=== PATIENT | female | born 1960 | race Caucasian/White ===

== ENCOUNTER 2020-02-27 10:31 | Inpatient (IN) | payer BC, OTHER ==
[2020-02-27 11:32] LABS: Absolute Lymphocytes (CBC) 1.4 K/uL (0.7-4.9); Basophils % 1.1 % (0-1.3); Hematocrit 40.5 % (36.0-45.0); Lymphocytes % 18.1 % (15.3-44.8); MPV 9.1 fL (7.6-11.3); RBC Red Blood Cell Count 4.26 M/uL (3.86-4.86)
[2020-02-27 11:54] LABS: ALT/SGPT 17 U/L (12-78); AST/SGOT 12 U/L (15-37); Albumin 3.4 g/dL (3.4-5.0); Alkaline Phosphatase 88 U/L (45-117); BUN Blood Urea Nitrogen 11 mg/dL (7-18); Bicarbonate 34 mmol/L (21-32); Bilirubin Direct < 0.1 mg/dL (0-0.2); Bilirubin Total 0.2 mg/dL (0.2-1.0); Glucose Level 110 mg/dL (74-106); Lipase 104 U/L (73-393); Protein, Total 7.4 g/dL (6.4-8.2); Sodium Level 138 mmol/L (136-145)
--- NOTE | 2020-02-27 12:45 | RAD REPORT ---
EXAM DESCRIPTION: CT - Abdomen Pelvis W Contrast - 02/27/2020 12:04 pm CLINICAL HISTORY: Abdominal pain COMPARISON: 2013 TECHNIQUE: Computed axial tomography of the abdomen pelvis was obtained. 100 cc Isovue-300 was admin istered intravenously. Oral contrast was not requested which limits evaluation of bowel. All CT scans are performed using dose optimization technique as appropriate and may include automated exposure control or mA/KV adjustment according to patient size. FINDINGS: The liver, spleen, pancreas, left adrenal adrenal and kidneys appear unremarkable. A 20 mi llimeter right adrenal nodule unchanged likely an adenoma. There is no evidence of diverticulitis. Appendectomy. Mild to moderate stranding adjacent to the cecum. Small diverticulum is present. No free air. No absc ess IMPRESSION: Mild to moderate cecal diverticulitis suspected
--- NOTE | 2020-02-27 13:52 | EDPHYS ---
Physician Documentation [facility] Name: Sangita Ford Age: 59 yrs Sex: Female : 1960 Arrival Date: 02/27/2020 Time: 10:34 Bed 7 Private MD: ED Physician Buck Bae HPI: 02/26 11:23 This 59 yrs old Female presents to ER via Ambulatory with complaints of rn Fever, abd pain. 11:23 The patient reports fever, not measured (subjective). rn 11:24 Onset: The symptoms/episode began/occurred 2 week(s) ago. Modifying factors: there are rn no obvious modifying factors. Severity of symptoms: At their worst the symptoms were moderate in the emergency department the symptoms are unchanged. The patient has experienced similar episodes in the past. Reports taking abx for supposed diverticulitis, has had right sided diverticulitis in past, appendix removed at that time, reports not getting better, + right lower quadrant abd pain with nausea. No diarrhea or blood in stool. + decreased appetite. . Historical: - Allergies: 10:44 Fentanyl; aa5 - Home Meds: 10:44 clonidine patch [Active]; aa5 - PMHx: 10:44 Diverticulitis; Thalamic stroke; aa5 - PSHx: 10:44 Appendectomy; total hysterectomy; Carpal Tunnel Repair; aa5 - Immunization history:: Flu vaccine is not up to date. - Social history:: Smoking status: Patient reports the use of cigarette tobacco products, smokes one-half pack cigarettes per day. - Family history:: not pertinent. - Hospitalizations: : No recent hospitalization is reported. ROS: 11:24 Constitutional: + subjective fever Eyes: Negative for injury, pain, redness, and director furniture, Neck: Negative for injury, pain, and swelling, Cardiovascular: Negative for chest pain, palpitations, and edema, Respiratory: Negative for shortness of breath, cough, wheezing, and pleuritic chest pain, Abdomen/GI: + right lower abd pain, + nausea, + anorexia Back: Negative for injury and pain, : Negative for injury, bleeding, discharge, and swelling, MS/Extremity: Negative for injury and deformity, Skin: Negative for injury, rash, and discoloration, Neuro: Negative for headache, weakness, numbness, tingling, and seizure. Exam: 11:24 Constitutional: This is a well developed, well nourished patient who is awake, alert, rn and in no acute distress. Head/Face: Normocephalic, atraumatic. ENT: MMM Cardiovascular: Regular rate and rhythm. No pulse deficits. Respiratory: No increased work of breathing, no retractions or nasal flaring. Abdomen/GI: soft, + right sided abd tenderness with guarding Skin: Warm, dry MS/ Extremity: Pulses equal, no cyanosis. Neurovascular intact. Full, normal range of motion. Equal circumference. Neuro: Awake and alert, GCS 15, oriented to person, place, time, and situation. Vital Signs: 10:39 BP 139 / 102; Pulse 87; Resp 16 S; Temp 98.8(O); Pulse Ox 98% on R/A; Weight 68.95 kg aa5 (R); Height 5 ft. 5 in. (165.10 cm) (R); Pain 8/10; 11:49 BP 123 / 76; Pulse 70; Resp 16 S; Pulse Ox 92% on R/A; jl7 12:51 BP 120 / 65; Pulse 69; Resp 16; Pulse Ox 96% ; sv 15:03 BP 114 / 72; Pulse 61; Resp 16; Pulse Ox 98% ; sv 16:04 BP 113 / 63; Pulse 56; Resp 16; Pulse Ox 95% ; sv 16:48 BP 114 / 59; Pulse 51; Resp 17; Pulse Ox 95% ; sv 17:45 BP 115 / 61; Pulse 58; Resp 16; Pulse Ox 98% ; Pain 0/10; jl7 10:39 Body Mass Index 25.29 (68.95 kg, 165.10 cm) aa5 MDM: 10:47 Patient medically screened. rn 13:38 Differential diagnosis: viral Infection, bacterial infection, gastroenteritis, colitis, rn diverticulitis. Data reviewed: vital signs, nurses notes, lab test result(s), radiologic studies, CT scan, and as a result, I will admit patient. Counseling: I had a detailed discussion with the patient and/or guardian regarding: the historical points, exam findings, and any diagnostic results supporting the discharge/admit diagnosis, lab results, radiology results, the need for further work-up and treatment in the hospital. Response to treatment: the patient's symptoms have mildly improved after treatment, and as a result, I will admit patient. Admission orders: after a detailed discussion of the patient's condition and case, the admit orders are written by me. ED course: Pt with failed outpt treatment, mild to moderate diverticulitis despite 2 weeks of abx. No perforation or abscess. Consulted with Dr. Johnston and agrees with admisison and IV abx. . 02/26 11:01 Order name: Basic Metabolic Panel; Complete Time: 12:08 rn 02/26 11:01 Order name: CBC with Diff; Complete Time: 12:08 rn 02/26 11:01 Order name: Creatinine for Radiology; Complete Time: 12:08 rn 02/26 11:01 Order name: Hepatic Function; Complete Time: 12:08 rn 02/26 11:01 Order name: Lipase; Complete Time: 12: rn 02/26 16:36 Order name: CBC with Automated Diff EDDE 02/26 11:01 Order name: CT Abd/Pelvis - IV Contrast Only; Complete Time: 12:53 rn 02/26 16:35 Order name: CONS Pharmacy Consult EDDE 02/26 16:36 Order name: CBC with Automated Diff EDDE 02/26 16:36 Order name: Comprehensive Metabolic Panel EDDE 02/26 16:36 Order name: Comprehensive Metabolic Panel EDDE 02/26 11:01 Order name: IV Saline Lock; Complete Time: 11:30 rn 02/26 11:01 Order name: Labs collected and sent; Complete Time: 11:30 rn 02/26 16:36 Order name: Full Liquid EDDE Administered Medications: 14:45 Drug: Demerol 25 mg Route: IVP; Site: right antecubital; jl7 15:10 Follow up: Response: No adverse reaction; Pain is decreased jl7 14:46 Drug: Rocephin 1 grams Route: IV; Rate: calculated rate; Site: right antecubital; jl7 14:49 Follow up: Response: No adverse reaction; IV Status: Completed infusion jl7 14:50 Drug: Flagyl 500 mg Volume: 100 ml; Route: IVPB; Rate: 200 ml/hr; Infused Over: 30 jl7 mins; Site: right antecubital; 15:20 Follow up: Response: No adverse reaction; IV Status: Completed infusion jl7 Disposition: 02/27/20 13:51 Hospitalization ordered by Shelli Johnson for Inpatient Admission. Preliminary diagnosis are Diverticulitis of large intestine without perforation or abscess without bleeding, Failed outpatient treatment of diverticulitis. - Bed requested for Telemetry/MedSurg (Inpatient). - Status is Inpatient Admission. jl7 - Condition is Stable. - Problem is an ongoing problem. - Symptoms have improved. Signatures: Dispatcher [employer] EDMS Sonal William RN RN dw Buck Bae MD MD rn Calderon, Audri, RN RN aa5 Senthil Hurtado RN RN jl7 Corrections: (The following items were deleted from the chart) 13:51 13:51 Hospitalization Ordered by Shelli Johnson MD for Inpatient Admission. Preliminary rn diagnosis is Diverticulitis of large intestine without perforation or abscess without bleeding. Bed requested for Telemetry/MedSurg (Inpatient). Status is Inpatient Admission. Condition is Stable. Problem is an ongoing problem. Symptoms have improved. rn 17:19 13:51 02/27/2020 13:51 Hospitalization Ordered by Shelli Johnson MD for Inpatient dw Admission. Preliminary diagnosis is Diverticulitis of large intestine without perforation or abscess without bleeding; Failed outpatient treatment of diverticulitis. Bed requested for Telemetry/MedSurg (Inpatient). Status is Inpatient Admission. Condition is Stable. Problem is an ongoing problem. Symptoms have improved. rn 17:22 17:19 02/27/2020 13:51 Hospitalization Ordered by Shelli Johnson MD for Inpatient dw Admission. Preliminary diagnosis is Diverticulitis of large intestine without perforation or abscess without bleeding; Failed outpatient treatment of diverticulitis. Bed requested for Telemetry/MedSurg (Inpatient). Status is Inpatient Admission. Condition is Stable. Problem is an ongoing problem. Symptoms have improved. dw 18:09 17:22 02/27/2020 13:51 Hospitalization Ordered by Shelli Johnson MD for Inpatient jl7 Admission. Preliminary diagnosis is Diverticulitis of large intestine without perforation or abscess without bleeding; Failed outpatient treatment of diverticulitis. Bed requested for Telemetry/MedSurg (Inpatient). Status is Inpatient Admission. Condition is Stable. Problem is an ongoing problem. Symptoms have improved. dw
--- NOTE | 2020-02-27 13:52 | ER ---
Nurse's Notes [facility] Name: Sangita Ford Age: 59 yrs Sex: Female : 1960 Arrival Date: 02/27/2020 Time: 10:34 Bed 7 Private MD: Diagnosis: Diverticulitis of large intestine without perforation or abscess without bleeding;Failed outpatient treatment of diverticulitis Presentation: 02/26 10:39 Chief complaint: Patient states: "I've been treated for diverticulitis since the and it's not getting better and Dr. Johnston told me to come to the ER". Pt c/o pain to right side of abdomen. Pt reports nausea, denies vomiting, denies diarrhea. Pt reports fever up to 100.4 F since Thursday. Coronavirus screen: Patient denies a cough. Patient denies shortness of breath or difficulty breathing. Patient reports a measured and/or subjective temperature greater than 100.4F. Patient denies travel on a cruise ship or to a country the [facility]NOTE 3] currently lists as an affected area. Patient denies contact with known and/or suspected case of COVID-19. Ebola Screen: Patient negative for fever greater than or equal to 101.5 degrees Fahrenheit, and additional compatible Ebola Virus Disease symptoms. Initial Sepsis Screen: Does the patient meet any 2 criteria? No. Patient's initial sepsis screen is negative. Does the patient have a suspected source of infection? No. Patient's initial sepsis screen is negative. Risk Assessment: Do you want to hurt yourself or someone else? Patient reports no desire to harm self or others. Onset of symptoms was February 2020. 10:39 Acuity: ALANNAH 3 aa5 10:39 Method Of Arrival: Ambulatory aa5 Historical: - Allergies: 10:44 Fentanyl; aa5 - Home Meds: 10:44 clonidine patch [Active]; aa5 - PMHx: 10:44 Diverticulitis; Thalamic stroke; aa5 - PSHx: 10:44 Appendectomy; total hysterectomy; Carpal Tunnel Repair; aa5 - Immunization history:: Flu vaccine is not up to date. - Social history:: Smoking status: Patient reports the use of cigarette tobacco products, smokes one-half pack cigarettes per day. - Family history:: not pertinent. - Hospitalizations: : No recent hospitalization is reported. Screenin:49 Abuse screen: Denies threats or abuse. Denies injuries from another. Nutritional jl7 screening: No deficits noted. Tuberculosis screening: No symptoms or risk factors identified. Fall Risk IV access (20 points). Total Liang Fall Scale indicates No Risk (0-24 pts). Assessment: 11:00 General: Appears in no apparent distress. uncomfortable, Behavior is calm, cooperative, jl7 appropriate for age. Pain: Complains of pain in right upper quadrant Pain does not radiate. Pain currently is 10 out of 10 on a pain scale. Is continuous. Neuro: Level of Consciousness is awake, alert, obeys commands, Oriented to person, place, time, situation. Cardiovascular: Patient's skin is warm and dry. Respiratory: Airway is patent Respiratory effort is even, unlabored, Respiratory pattern is regular, symmetrical. GI: Abdomen is round non-distended, Last BM was February 27, 2020. Abdomen is tender to palpation in right upper quadrant Reports nausea, Patient currently denies constipation, diarrhea, vomiting. : No signs and/or symptoms were reported regarding the genitourinary system. EENT: No signs and/or symptoms were reported regarding the EENT system. Derm: Skin is pink, warm \\T\\ dry. Musculoskeletal: No signs and/or symptoms reported regarding the musculoskeletal system. 11:30 Reassessment: Pt's , Maurice Ford [phone]. jl7 12:00 Reassessment: Patient appears in no apparent distress at this time. No changes from jl7 previously documented assessment. Patient and/or family updated on plan of care and expected duration. Pain level reassessed. Patient is alert, oriented x 3, equal unlabored respirations, skin warm/dry/pink. 13:00 Reassessment: Patient appears in no apparent distress at this time. Patient and/or jl7 family updated on plan of care and expected duration. Pain level reassessed. Patient is alert, oriented x 3, equal unlabored respirations, skin warm/dry/pink. 13:38 Reassessment: Dr. Johnston at bedside. jl7 14:54 Reassessment: Patient appears in no apparent distress at this time. No changes from jl7 previously documented assessment. Patient and/or family updated on plan of care and expected duration. Pain level reassessed. Patient is alert, oriented x 3, equal unlabored respirations, skin warm/dry/pink. 17:41 Reassessment: Attempted to call report, nurse to call back. sv Vital Signs: 10:39 BP 139 / 102; Pulse 87; Resp 16 S; Temp 98.8(O); Pulse Ox 98% on R/A; Weight 68.95 kg aa5 (R); Height 5 ft. 5 in. (165.10 cm) (R); Pain 8/10; 11:49 BP 123 / 76; Pulse 70; Resp 16 S; Pulse Ox 92% on R/A; jl7 12:51 BP 120 / 65; Pulse 69; Resp 16; Pulse Ox 96% ; sv 15:03 BP 114 / 72; Pulse 61; Resp 16; Pulse Ox 98% ; sv 16:04 BP 113 / 63; Pulse 56; Resp 16; Pulse Ox 95% ; sv 16:48 BP 114 / 59; Pulse 51; Resp 17; Pulse Ox 95% ; sv 17:45 BP 115 / 61; Pulse 58; Resp 16; Pulse Ox 98% ; Pain 0/10; jl7 10:39 Body Mass Index 25.29 (68.95 kg, 165.10 cm) aa5 ED Course: 10:34 Patient arrived in ED. ag5 10:38 Arm band placed on. aa5 10:41 Triage completed. aa5 10:45 Senthil Hurtado RN is Primary Nurse. jl7 10:47 Buck Bae MD is Attending Physician. rn 11:49 Patient has correct armband on for positive identification. Placed in gown. Bed in low jl7 position. Call light in reach. Side rails up X 1. Pulse ox on. NIBP on. Warm blanket given. 11:49 Initial lab(s) drawn, by mo, sent to lab. Inserted saline lock: 20 gauge in right jl7 antecubital area, using aseptic technique. Blood collected. 12:04 CT Abd/Pelvis - IV Contrast Only In Process Unspecified. EDMS 13:51 Shelli Johnson MD is Hospitalizing Provider. rn 18:08 No provider procedures requiring assistance completed. Patient admitted, IV remains in jl7 place. intact, No redness/swelling at site. Administered Medications: 14:45 Drug: Demerol 25 mg Route: IVP; Site: right antecubital; jl7 15:10 Follow up: Response: No adverse reaction; Pain is decreased jl7 14:46 Drug: Rocephin 1 grams Route: IV; Rate: calculated rate; Site: right antecubital; jl7 14:49 Follow up: Response: No adverse reaction; IV Status: Completed infusion jl7 14:50 Drug: Flagyl 500 mg Volume: 100 ml; Route: IVPB; Rate: 200 ml/hr; Infused Over: 30 jl7 mins; Site: right antecubital; 15:20 Follow up: Response: No adverse reaction; IV Status: Completed infusion jl7 Outcome: 13:51 Decision to Hospitalize by Provider. rn 18:08 Admitted to Med/surg accompanied by tech, via stretcher, room 204, with chart, Report jl7 called to [facility] Renae 18:08 Condition: stable 18:08 Discharge instructions given to patient, Instructed on the need for admit, Demonstrated understanding of instructions. 18:09 Patient left the ED. jl7 Signatures: Dispatcher [facility] Nat Clark RN RN sv Nieto, Roman, MD MD rn Calderon, Audri, RN RN aa5 Senthil Hurtado RN RN jl7 [place] ag5 Corrections: (The following items were deleted from the chart) 14:51 14:50 Rocephin 1 grams IV at calculated rate in right antecubital jl7 jl7
[2020-02-27] MEDS ORDERED: CEFTRIAXONE/SWI 1gm 1 GM/10 ML SYR ONE (14:29)
[2020-02-27] MEDS ORDERED: METRONIDAZOLE 500mg IVPB 500 MG/100 ML BAG IV ONE (14:29)
[2020-02-27] MEDS ORDERED: MEPERIDINE HCL 25 MG/0.5 ML ONE (14:47)
[2020-02-27] MEDS ORDERED: MORPHINE 4 MG/ML SYR IV PRN (16:26)
[2020-02-27] MEDS ORDERED: ONDANSETRON 4 MG/2 ML VIAL IV PRN (16:26)
[2020-02-27] MEDS ORDERED: ACETAMINOPHEN 500 MG TAB PO PRN (16:26)
--- NOTE | 2020-02-27 16:26 | P.HP ---
Certification for Inpatient Patient admitted to: Inpatient With expected LOS: >2 Midnights Patient will require the following post-hospital care: None Practitioner: I am a practitioner with admitting privileges, knowledge of patient current condition, hospital course, and medical plan of care. Services: Services provided to patient in accordance with Admission requirements found in Title 42 Section 412.3 of the Code of Federal Regulations Patient History Date of Service: 02/27/20 Reason for admission: Intractable abdominal pain History of Present Illness: 59-year-old female with history of chronic tobacco use, previous diverticulitis developed lower abdominal pain, pain over the suprapubic area radiating to the right lower quadrant. She denies any radiation to the back. She denies any constipation be admits to some loose stools. She admits to some nausea but no vomiting. She has been tolerating p.o. well. She was evaluated by her surgeon Dr. Preston torres with week ago and started on empirical Cipro with Flaget. Symptoms continued to persist despite patient reported that [place]. She was added Augmentin to regimen 5 days ago for persistent abdominal pain. She presents to the ED today with worsening symptoms. She relates pain to the as about 10/10. She was given IV morphine her pain as reduced to 4/10 out. Her last bowel movement was earlier today. CT of the abdomen shows evidence of mild to moderate cecal diverticulitis. Allergies fentanyl Allergy (Verified 01/09/14 18:14) Shortness of breath Home Medications: ALPRAZolam [Xanax*] 1 mg pe PO BEDTIME PRN 01/09/14 Ca/D3/Mag Ox/Zinc/Dental Laboratory Worker/Edgar/Bor [Calcium 600-D3 Plus Caplet] 1 each PO DAILY 01/09/14 Clonidine Patch [Catapres-Tts 1*] 0.1 mg TD EVERY 7TH DAY 01/09/14 Cyanocobalamin [Vitamin B-12*] 1,000 mg PO DAILY 01/09/14 Dextroamphetamine Sulfate [Zenzedi] 5 mg PO TID 01/09/14 Gunlock-3 Fatty Acids [Gunlock-3] 1,000 mg PO DAILY 01/09/14 Zolpidem Tartrate [Ambien*] 10 mg PO BEDTIME PRN 01/09/14 Levofloxacin [Levaquin] 750 mg PO DAILY #7 tablet 01/11/14 Promethazine Tab [Phenergan -Tab] 25 mg PO Q6HP PRN #10 tab 01/11/14 Tramadol HCl/Acetaminophen [Ultracet Tablet] 2 each PO Q4HR PRN #50 tablet 01/11/14 metroNIDAZOLE [Flagyl*] 500 mg PO Q6H #28 tablet 01/11/14 - Past Medical/Surgical History Diabetic: No -: HTN -: ADD -: Asthma -: total Hyst 1994 - Social History Alcohol use: No CD- Drugs: No Caffeine use: Yes Review of Systems 10-point ROS is otherwise unremarkable Physical Examination - Physical Exam General: Alert, In no apparent distress, Oriented x3 HEENT: Atraumatic, Normocephalic Neck: Supple, 2+ carotid pulse no bruit, JVD not distended Respiratory: Clear to auscultation bilaterally, Normal air movement Cardiovascular: No edema, Normal pulses, Regular rate/rhythm, Normal S1 S2 Capillary refill: <2 Seconds Gastrointestinal: Normal bowel sounds, Soft and benign, Non-distended, Tenderness (No rebound ) Musculoskeletal: No clubbing, No swelling Integumentary: No rashes, No breakdown, No significant lesion External genitalia: No edema, No lesions - Studies Laboratory Data (last 24 hrs) 02/27/20 11:18: Creatinine 0.88 02/27/20 11:18: WBC 7.7, Hgb 13.7, Hct 40.5, Plt Count 293 02/27/20 11:18: Sodium 138, Potassium 4.0, BUN 11, Creatinine 0.86, Glucose 110 H, Total Bilirubin 0.2, AST 12 L, ALT 17, Alkaline Phosphatase 88, Lipase 104 Imagings Data: FINDINGS: The liver, spleen, pancreas, left adrenal adrenal and kidneys appear unremarkable. A 20 millimeter right adrenal nodule unchanged likely an adenoma. There is no evidence of diverticulitis. Appendectomy. Mild to moderate stranding adjacent to the cecum. Small diverticulum is present. No free air. No abscess IMPRESSION: Mild to moderate cecal diverticulitis suspected Assessment and Plan - Problems (Diagnosis) (1) Cecal diverticulitis Current Visit: Yes Status: Acute (2) Tobacco abuse Current Visit: Yes Status: Acute (3) Anxiety Current Visit: Yes Status: Acute - Advance Directives Does patient have a Living Will: No Does patient have a Durable POA for Healthcare: No Physician Review: Patient Assessed, Agree with Above Assessment and Plan Physician Review Additional Text: Cecal diverticulitis-will swithc to ertapenem since failure of outpatient oral abx -continue pain regimen. -we start gentle IV fluids -we start low-dose MiraLax daily Tobacco abuse-cessation advised, start low-dose nicotine patch Anxiety disorder-start home regimen next DVT prophylaxis-subcutaneous Lovenox Time Spent Managing Pts Care (In Minutes): 65
[2020-02-27] MEDS ORDERED: HYDRALAZINE HCL 20 MG/ML VIAL IV PRN (16:28)
[2020-02-27] MEDS ORDERED: ALPRAZOLAM 1 MG TABLET PO PRN (16:33)
[2020-02-27] MEDS ORDERED: ZOLPIDEM TARTRATE 10 MG TABLET PO PRN (16:33)
[2020-02-27] MEDS ORDERED: ERTAPENEM SODIUM 1 GM VIAL IVPB SCH (17:00)
[2020-02-27 18:32] VITALS: O2SAT 98
[2020-02-27] MEDS: Meropenem 1,000 MG in NA CHLORIDE 0.9% 100 ML IV SCH (18:35)
[2020-02-27] MEDS: NA CHLORIDE 0.9% 1,000 ML IV SCH (18:35)
[2020-02-27 18:39] VITALS: BMI 25.2
[2020-02-27] MEDS: FAMOTIDINE 20 MG TAB PO SCH (20:19)
[2020-02-28] MEDS: Meropenem 1,000 MG in NA CHLORIDE 0.9% 100 ML IV SCH ×2 (00:18→08:01)
[2020-02-28] MEDS: NA CHLORIDE 0.9% 1,000 ML IV SCH ×2 (03:00→05:38)
[2020-02-28 04:38] LABS: Absolute Lymphocytes (CBC) 2.3 K/uL (0.7-4.9); Basophils % 0.8 % (0-1.3); Hematocrit 38.2 % (36.0-45.0); Lymphocytes % 33.1 % (15.3-44.8); MPV 9.2 fL (7.6-11.3); RBC Red Blood Cell Count 3.99 M/uL (3.86-4.86)
[2020-02-28 04:55] LABS: ALT/SGPT 16 U/L (12-78); AST/SGOT 12 U/L (15-37); Alkaline Phosphatase 74 U/L (45-117); BUN Blood Urea Nitrogen 8 mg/dL (7-18); Bicarbonate 31 mmol/L (21-32); Bilirubin Total 0.1 mg/dL (0.2-1.0); Glucose Level 89 mg/dL (74-106); Potassium 3.7 mmol/L (3.5-5.1); Protein, Total 6.6 g/dL (6.4-8.2); Sodium Level 140 mmol/L (136-145)
[2020-02-28] MEDS: FAMOTIDINE 20 MG TAB PO SCH (08:01)
[2020-02-28 08:47] VITALS: BP 127/72; TEMP 97.3
[2020-02-28] MEDS ORDERED: NICOTINE 21 MG/PAT TD SCH (09:00)
[2020-02-28] MEDS ORDERED: ASPIRIN EC 81 MG TAB PO SCH (09:00)
[2020-02-28] MEDS ORDERED: ENOXAPARIN 40 MG/0.4 ML SQ SCH (09:00)
[2020-02-28] MEDS ORDERED: HYDROCODONE/APAP 5/325 MG TAB PO PRN (10:21)
--- NOTE | 2020-02-28 12:00 | P.PN ---
Subjective Date of Service: 02/28/20 Chief Complaint: Intractable abdominal pain Subjective: No new changes, Tolerating diet, Improving Physical Examination - Vital Signs Temperature: 97.3 F Blood Pressure: 127/72 Pulse: 60 Respirations: 16 Pulse Ox (%): 98 - Physical Exam General: Alert, Oriented x3 HEENT: Atraumatic, Normocephalic, PERRLA Neck: Supple, 2+ carotid pulse no bruit Respiratory: Clear to auscultation bilaterally, Normal air movement Cardiovascular: Normal pulses, Regular rate/rhythm, Normal S1 S2 Gastrointestinal: Normal bowel sounds, Soft and benign, Non-distended, Tenderness (Mild, improved) Neurological: Normal speech, Normal strength at 5/5 x4 extr Assessment And Plan - Current Problems (Diagnosis) (1) Cecal diverticulitis Current Visit: Yes Status: Acute (2) Tobacco abuse Current Visit: Yes Status: Acute (3) Anxiety Current Visit: Yes Status: Acute Physician Review: Patient Assessed, Agree with Above Assessment and Plan Physician Review Additional Text: Cecal diverticulitis-improving with meropenem -continue IVF fluid Continue IV antibiotics for another 24 hr, then can consider switch back to oral antibiotics -continue on low-dose laxative -continue pain control Tobacco abuse-cessation advised, continue nicotine patch Anxiety disorder-Controlled DVT prophylaxis-subcutaneous Lovenox Time Spent Managing PTS Care (In Minutes): 30
[2020-02-28] MEDS ORDERED: POLYETHYL GLY 3350 17 GM/DOSE PO PRN (12:06)
--- NOTE | 2020-02-28 13:16 | P.PN ---
Date of Service: 02/28/20 S: Patient feels much better today, no abdominal pain. Tolerating clear liquids. Anxious to go home. O: Abdomen is soft, nontender, no guarding or rebound A: Surgically stable will not require any intervention at this time P: Patient will be discharged. I have discussed her case with Dr. Douglas, a cotton stomper who she sees. We will continue 1 p.o. antibiotics for 1 week, and then she will follow up with him in 3-6 weeks for repeat colonoscopy. She understands and wants to proceed. She will be discharged today.
--- NOTE | 2020-02-29 14:05 | P.DS ---
Admission Date: 02/27/20 Discharge Date: 02/29/20 Disposition: ROUTINE DISCHARGE Reason for Admission: Intractable abdominal pain - Problems (1) Cecal diverticulitis Status: Acute (2) Tobacco abuse Status: Acute (3) Anxiety Status: Acute Brief History of Present Illness: 59-year-old female with history of chronic tobacco use, previous diverticulitis developed lower abdominal pain, pain over the suprapubic area radiating to the right lower quadrant. She denies any radiation to the back. She denies any constipation be admits to some loose stools. She admits to some nausea but no vomiting. She has been tolerating p.o. well. She was evaluated by her surgeon Dr. Preston torres with week ago and started on empirical Cipro with Flaget. Symptoms continued to persist despite patient reported that Navas. She was added Augmentin to regimen 5 days ago for persistent abdominal pain. She presents to the ED today with worsening symptoms. She relates pain to the as about 10/10. She was given IV morphine her pain as reduced to 4/10 out. Her last bowel movement was earlier today. CT of the abdomen shows evidence of mild to moderate cecal diverticulitis. Hospital Course: Patient started on antibiotics with meropenem, abdominal pain improving, leukocytosis was improving. Patient tolerating p.o. well. Patient was discharged by surgery. Vital Signs/Physical Exam: Temp Pulse Resp BP Pulse Ox 97.3 F 60 16 127/72 98 02/28/20 12:00 02/28/20 12:00 02/28/20 12:00 02/28/20 12:00 02/28/20 12:00 Other Physical/Emotional Findings: See progress note from yesterday. Physical examination at time of discharge not done as patient was discharged by Surgical team Laboratory Data at Discharge: WBC 6.8 K/uL (4.3-10.9) 02/28/20 03:44 Hgb 12.8 g/dL (12.0-15.0) 02/28/20 03:44 Hct 38.2 % (36.0-45.0) 02/28/20 03:44 Plt Count 277 K/uL (152-406) 02/28/20 03:44 Sodium 140 mmol/L (136-145) 02/28/20 03:44 Potassium 3.7 mmol/L (3.5-5.1) 02/28/20 03:44 BUN 8 mg/dL (7-18) 02/28/20 03:44 Creatinine 0.65 mg/dL (0.55-1.3) 02/28/20 03:44 Glucose 89 mg/dL (74-106) 02/28/20 03:44 Total Bilirubin 0.1 mg/dL (0.2-1.0) L 02/28/20 03:44 AST 12 U/L (15-37) L 02/28/20 03:44 ALT 16 U/L (12-78) 02/28/20 03:44 Alkaline Phosphatase 74 U/L (45-117) 02/28/20 03:44 Lipase 104 U/L (73-393) 02/27/20 11:18 Home Medications: ALPRAZolam [Xanax*] 1 mg pe PO BEDTIME PRN 01/09/14 Ca/D3/Mag Ox/Zinc/Clam Grower/Edgar/Bor [Calcium 600-D3 Plus Caplet] 1 each PO DAILY 01/09/14 Clonidine Patch [Catapres-Tts 1*] 0.1 mg TD EVERY 7TH DAY 01/09/14 Cyanocobalamin [Vitamin B-12*] 1,000 mg PO DAILY 01/09/14 Dextroamphetamine Sulfate [Zenzedi] 5 mg PO TID 01/09/14 [place]-3 Fatty Acids [[place]-3] 1,000 mg PO DAILY 01/09/14 Zolpidem Tartrate [Ambien*] 10 mg PO BEDTIME PRN 01/09/14 Tramadol HCl/Acetaminophen [Ultracet Tablet] 2 each PO Q4HR PRN #50 tablet 0 01/11/14 metroNIDAZOLE [Flagyl*] 500 mg PO Q6H #28 tablet 01/11/14 Followup: Robin Johnston MD [ACTIVE - CAN ADMIT] - (Call for appointment on Thursday, March 05, 2020)
[2020-03-29] MEDS ORDERED: CLONIDINE 0.1 MG/PATCH TD SCH (09:00)
== END 2020-02-28 14:33 | disposition home or self-care (01) | DRG 392 ==
LOC: ER 10:31 → ERHOLD 16:27 → 2ND 17:52
PROVIDERS: ADMIT Internal Medicine; ATTEND Internal Medicine
DX: K57.32 Diverticulitis of large intestine without perforation or abscess without bleeding (principal); F41.9 Anxiety disorder, unspecified; I10 Essential (primary) hypertension; J45.909 Unspecified asthma, uncomplicated; Z90.49 Acquired absence of other specified parts of digestive tract; Z79.899 Other long term (current) drug therapy; Z79.01 Long term (current) use of anticoagulants; Z88.5 Allergy status to narcotic agent; Z90.710 Acquired absence of both cervix and uterus
CPT/HCPCS: 36415; 74177; 80048; 80053; 80076; 83690; 85025; 96365; 96375; 99285; J0696; J1650; J2175; J7030; Q9967

== ENCOUNTER 2022-06-24 06:25 | Day surgery (SDC) | payer OTHER ==
[2022-06-20 12:19] LABS: SARS-CoV-2 Antigen Rapid Res Negative (Negative)
[2022-06-24] MEDS ORDERED: Ringers Lactate 1,000 ML IV ONE (06:40)
[2022-06-24] MEDS ORDERED: FENTANYL CITR 100 MCG/2 ML ONE (07:16)
[2022-06-24] MEDS ORDERED: LIDOCAINE 2% MPF 5 ML VIAL ONE (07:16)
[2022-06-24] MEDS ORDERED: dexAMETHasone 10 MG/ML VIAL ONE (07:16)
[2022-06-24] MEDS ORDERED: propofoL 200 MG/20 ML VIAL IV ONE (07:16)
[2022-06-24] MEDS ORDERED: MIDAZOLAM HCL 2 MG/2 ML INJ ONE (07:17)
[2022-06-24] MEDS ORDERED: ONDANSETRON 4 MG/2 ML VIAL ONE (07:22)
[2022-06-24] MEDS: LIDOCAINE 1% W/EPI 1:100,000 MDV 50 ML VIAL ONE ×2 (07:29→08:23)
[2022-06-24] MEDS ORDERED: ACETAMINOPHEN 500 MG TAB ONE (07:34)
[2022-06-24] MEDS ORDERED: CELECOXIB 100 MG CAPSULE ONE (07:34)
[2022-06-24] MEDS ORDERED: MEPERIDINE HCL 50 MG/ML ONE (07:38)
[2022-06-24] MEDS ORDERED: SALIVA SUBSTITUTE COMBO NO 9 MOUTHWASH MM PRN (07:51)
[2022-06-24] MEDS ORDERED: ALPRAZOLAM 1 MG TABLET PO PRN (07:51)
[2022-06-24] MEDS ORDERED: HYDROCODONE/APAP 10/325 TAB PO PRN (07:51)
[2022-06-24] MEDS ORDERED: MEPERIDINE HCL 25 MG/ML SYR IM PRN (07:52)
[2022-06-24] MEDS ORDERED: PROMETHAZINE INJ 25 MG/ML AMP IV PRN (07:52)
[2022-06-24] MEDS ORDERED: HYDROCODONE/APAP 5/325 MG TAB PO PRN (07:52)
[2022-06-24] MEDS ORDERED: IBUPROFEN 200 MG TAB PO PRN (07:52)
--- NOTE | 2022-06-24 08:00 | P.BOP ---
Preoperative diagnosis: Condylomata, VIN3 Postoperative diagnosis: same, perianal condylomata Primary procedure: WLE of perineal/ gera labial/vestibular severe dysplasia& condylomata Secondary procedure: Reconstruction of perineum/gera labial/vestibule V- Yplasty&advancement flaps Other procedure(s): fulgration of perianal condylomatax2 lesions Case Briefer: Jaz Can Madison Roman Estimated blood loss: min Specimen: single vulvar specimen see picture Findings: condylomata and dysplasia Anesthesia: General Complications: None Fluids & blood products: UO 500 Transferred to: Recovery Room Condition: Good
[2022-06-24] MEDS ORDERED: CEFAZOLIN SODIUM 1 GM/VIAL ONE (08:17)
[2022-06-24] MEDS ORDERED: AMPHETAMINE PO SCH (09:00)
[2022-06-24] MEDS ORDERED: DEXTROAMPHETAMINE PO SCH (09:00)
[2022-06-24] MEDS ORDERED: ASPIRIN EC 81 MG TAB PO SCH (09:00)
[2022-06-24] MEDS ORDERED: HOME MED 1 EA UNK (Biotin [Biotin] 1,000 MCG Tab.Chew) PO SCH (09:00)
[2022-06-24] MEDS ORDERED: CLONIDINE 0.1 MG/PATCH TD SCH (09:00)
[2022-06-24] MEDS ORDERED: CYANOCOBALAMIN 1,000 MCG TAB PO SCH (09:00)
[2022-06-24] MEDS ORDERED: ESCITALOPRAM 20 MG TAB PO SCH (09:00)
[2022-06-24] MEDS ORDERED: [UNRECOGNIZED DRUG - OTHER] PO SCH (09:00)
[2022-06-24] MEDS ORDERED: CHOLECALCIFEROL PO SCH (09:00)
[2022-06-24] MEDS ORDERED: ACYCLOVIR 400 MG TABLET PO SCH (09:00)
[2022-06-24] MEDS ORDERED: DOCUSATE NA 100 MG CAP PO SCH (09:00)
[2022-06-24 11:34] VITALS: BP 116/56; TEMP 98; O2SAT 100
[2022-06-24] MEDS ORDERED: ZOLPIDEM TARTRATE 10 MG TABLET PO SCH (21:00)
--- NOTE | 2022-06-30 03:26 | OP ---
Date of Procedure: 06/24/2022 Surgeon: Anila Groves MD Skip Tender: Jaz Can and Yani Jane. Preoperative Diagnosis: Condylomata and PATRICIA-3. Postoperative Diagnosis: Condylomata and PATRICIA-3 and perianal condylomata. Procedures Performed: 1.Wide local excision of perineal bilateral labial vestibular severe dysplasia (PATRICIA-3 and condylomat a). 2.Reconstruction of perineum with bilateral labial vestibular V-Y plasty with advancement flaps, per ineoplasty, labial plasty and vestibuloplasty with advancement flaps. 3.Fulguration of perianal condylomata x2 lesions. Anesthesia: General with LMA. Estimated Blood Loss: Minimal. Specimens: Single Wolver specimen as drawn in the picture, just like a triangle with right side of t he excision slightly longer than the left, extending all the way into the perineum. Findings: Condylomata and dysplasia. Complications: No complications. Ebl: As dictated. Urine Output: 500. Condition: The patient recovered and transferred to the recovery room in a stable condition. Indications: The patient is a 61-year-old lady who presented as a new patient with recurrent condylo ma. On examination, some of the lesions appeared to be benign condyloma; however, some of the lesion s appeared to be suspicious for dysplasia. Procedure In Detail: She was brought in for vulvar colposcopy and biopsying the most concerning port ion. There was PATRICIA-3 that was detected. She was then consented for excision of PATRICIA-3 with a wide local excision and then removal of condyloma as necessary after this. We discussed about the need for reconstruction of this area as there is going to be a significant los s of tissue while they were here and possible dyspareunia besides the routine complications of any blank rgical procedures. She is also a smoker, delayed healing and infection risks were all reviewed. She was not ready to co ntemplate cessation. 2 g of Ancef were given. SCDs were placed after she was placed in a supine fashion on the operating table. General anesthesia was given. She was placed in dorsal lithotomy position using Rj stirru ps. Lower abdomen, vulva, vagina, and perineum were prepped and draped in a sterile fashion. A catheter was placed to drain the bladder. Then, examination and mapping of the area was done in co mparison with a diagram obtained from the office. Also, making sure that the excisional area would b e wide enough. Once this was all drawn out starting from the lateral aspect of the right labia minor all the way down at least 1.5 cm onto the perineum in the midline all the way to the area right unde rneath the left labia minora on the inner aspect of the labia mated. Then the inner deeper margin wa s drawn in the vestibule connecting from 1 side to the other in a wide U-shaped fashion. All the areas were injected with dilute vasopressin and lidocaine with epinephrine. This was done fo r hydrodissection and a 15 blade was used to make the incision first on the right side. Then, the ca utery was used to take down the margin. This was a needlepoint cautery used the whole way on cutting and coag current. Then, the underlying tissues were dissected away carefully with being mindful of full thickness excision all the way down to the fat. Once all this was excised all the way to the mi dline including the vestibular lesions, then in the opposite contralateral side, dissection was start ed. Incision was made with the help of the needlepoint Bovie on this side and taken down all the way down to the perineum on the outer margin and the inner margin into the vestibule and joint to the previou s area. Then underlying tissues were full-thickness excised all the way down to the perineum and on the perineal body, making sure that the there was no injury to the rectum. There was a small rectocele, distal perineal body defect as well as the distal posterior wall defect. Allis clamps were placed here and the vaginal epithelium was undermined in order for advancement du ring the reconstruction. Both the midline right and lateral posterior kong were mobilized. The lab ia were mobilized on the inner aspect on both sides. Then, the incision was extended slightly further down on the perineum in the midline about 1.5 cm in order for me to be able to dissect and mobilize the perineal skin and the underlying connective tissu e. Once the whole flap on the right side was mobilized in order for it to be advanced superiorly, th e left side was mobilized just in the same fashion. Then, a Y closure was performed starting on the perineum, closing the stem of the Y with the help of 2-0 Vicryl sutures in interrupted fashion x3. Then perineal body reconstruction was performed from s con-to-side, being mindful of the level to which the deep transverse perineum were held on Allis clam p and brought together without any tension. Once the most stitches were placed here for reconstructi on and there was a good integrity of the perineal body, then interrupted 2-0 Vicryl sutures were plac ed to reduce the tension on each side. Then, closure was performed with the help of a continuous run gerardo mattress suture coming down from the right side to the perineum and then similar another suture going from the left lateral aspect to the perineum. Then sutures were placed to close the vaginal ep ithelium in interrupted fashion, the center was brought together again with a 2-0 Vicryl so that it c ould be held together. There was no tension with a tension-free repair with good advancement without too much eversion of the vaginal epithelium. The vestibule was mostly excised. Rectal exam was performed. No evidence of any trauma or sutures here. The bladder was drained. Attention was directed to the perianal condyloma. There were 2 lesions which were picked up with the tip of an Adson forceps and fulgurated with the help of the monopolar needle to very well at the bas e as well. After cleaning the patient, flaps were placed and antibiotic ointment was placed. She was recovered from anesthesia and Escalante was removed. She was taken to the recovery room in stable condition. The family was updated about her status and her was notified. She has a 1-week followup appo intment. All pericare instructions were given and placed in the patient's chart for review. She has hydrocodone at home, so no other pain medication was sent. ESTELITA/JASON Voice ID: [id number] Report ID: [id number]
== END 2022-06-24 11:25 | disposition home or self-care (01) ==
LOC: OR 06:25
PROVIDERS: ATTEND Obstetrics & Gynecology
PROC: 0H5 Skin and Breast, Destruction (ICD-10-PCS; 2022-06-24)
PROC: 0HBAXZZ Excision of Inguinal Skin, External Approach (ICD-10-PCS; principal; 2022-06-24 07:30)
DX: D07.1 Carcinoma in situ of vulva (principal); A63.0 Anogenital (venereal) warts; N90.3 Dysplasia of vulva, unspecified; N90.4 Leukoplakia of vulva; Z88.6 Allergy status to analgesic agent; Z86.73 Personal history of transient ischemic attack (TIA), and cerebral infarction without residual deficits; K29.60 Other gastritis without bleeding; F41.9 Anxiety disorder, unspecified
CPT/HCPCS: 36415; 88305; 87811; 14040; 46910; J2704; J2250; J1100; J2175; J7120; J2405; J0690; J3010

== ENCOUNTER 2023-03-10 05:51 | Day surgery (SDC) | payer OTHER ==
[2023-03-10] MEDS ORDERED: Ringers Lactate 1,000 ML IV ONE (06:13)
[2023-03-10] MEDS ORDERED: NA CHLORIDE 0.9% 0 ML ONE (06:33)
[2023-03-10] MEDS ORDERED: VASOPRESSIN 20 UNIT/ML VIAL ONE (06:33)
[2023-03-10] MEDS ORDERED: propofoL 200 MG/20 ML VIAL IV ONE (06:52)
[2023-03-10] MEDS ORDERED: ROCURONIUM 50 MG/5 ML VIAL IV ONE (06:53)
[2023-03-10] MEDS ORDERED: MIDAZOLAM HCL 2 MG/2 ML INJ ONE (06:53)
[2023-03-10] MEDS ORDERED: FENTANYL CITR 250 MCG/5 ML ONE (06:54)
[2023-03-10] MEDS ORDERED: GLYCOPYRROLATE 0.2 MG/ML SYR ONE ×2 (06:54→06:55)
[2023-03-10] MEDS ORDERED: NEOSTIGMINE 1 MG/ML -10 ML VIAL ONE (07:00)
[2023-03-10] MEDS ORDERED: LIDOCAINE 2% MPF 5 ML VIAL ONE (07:00)
[2023-03-10] MEDS ORDERED: ONDANSETRON 4 MG/2 ML VIAL ONE (07:00)
[2023-03-10] MEDS ORDERED: LIDOCAINE 1% MPF 5 ML VIAL ONE (07:20)
[2023-03-10] MEDS: CEFAZOLIN SODIUM 1 GM/VIAL ONE ×2 (07:30→07:39)
[2023-03-10] MEDS: LIDOCAINE 1.5% W/EPI AMP 5 ML ONE ×2 (07:45→07:53)
[2023-03-10] MEDS ORDERED: EPHEDRINE SULF 50 MG/ML VIAL ONE (07:54)
[2023-03-10] MEDS ORDERED: KETOROLAC 30 MG/ML INJ ONE (08:35)
[2023-03-10 09:40] VITALS: BP 142/59; TEMP 97.3; O2SAT 94
--- NOTE | 2023-03-10 10:08 | OP ---
Date of Procedure: 03/10/2023 Surgeon: Anila Groves MD [employer] Examiner: No assistants. Preoperative Diagnosis: Persistent/recurrent KATHI 3. Postoperative Diagnosis: Persistent/recurrent KATHI 3. Procedures Performed: Vulvar colposcopy, vulvar wide local excision (partial vulvectomy), and right labial reconstruction including perineal distal vaginal areas. Estimated Blood Loss: Minimal, less than 25 mL. Complications: No complications. Drains: Escalante catheter and vaginal packing. Anesthesia: General with LMA. Specimens: Right labial excisional specimen #1, which is a larger specimen in a triangular shape and then right lateral outer margin. Condition: The patient's condition stable. Findings: Vulvar colposcopy just revealed a healing biopsy site. No obvious dysplastic changes note d. A 0.5 mm on each side was attempted given the restricted area and the scar tissue from the previo us procedure. Mobilization of the underlying labial skin, especially labia majora and then the inner margin with vaginal epithelium and perineal areas were dissected and mobilized to facilitate reconst ruction with advancing flaps. Procedure In Detail: After the patient was consented, she was taken back to the OR. 2 g of Ancef we re given. SCDs were placed. General anesthesia was given. She was placed in dorsal lithotomy posit ion. Time-out was done. Vulva, vagina, and perineum prepped and draped in a sterile fashion. Vulvar Colposcopy: This was performed with a sterile drape over the colposcope focused on the entire vulvar area visualized and the liver biopsy site was well visualized and the margins were marked out with this and the previous scar considered as well. Colposcope was removed from the field. Wide local excision: Areas at least 0.5 mm from the margins of the biopsy site were measured on all sides, slightly more was taken on the outer aspect. On the inner medial and superior aspects, the sc ope for mobilization was not as much in this area was marked out and once local injection with 1.5% l idocaine with epi was injected. A scalpel was used to priscila all the outer margins. Then, dissection was carried on excising the labial skin from the superior part of the inner labia minora, then outer carried out to the outer aspect excising it from the outer labia majora, then going medially to the p erineal area and excising from the underlying tissues, then superiorly and cephalad from the vaginal epithelium. All the margins were cut according to the marking, picked up with Allis clamp and then e xcised with tenotomy scissors making sure that the full depth of the skin was taken and the specimen was detached and marked. The outer margin laterally was opened up and excised, and these 2 were set aside and marking stitches were placed as shown in the diagram. Reconstruction: The edges of the labia minor superiorly. There was very minimal labia minora left. Labia majora was mobilized laterally and inferiorly. The perineum was the 1 that needed to be advan keanu and opened up. Once the perineal scar tissue was taken down, then a full-thickness skin was rais ed. The perineal area was dissected to allow closure from [id number] and then vaginal epithelium w as dissected into the posterior wall preserving the posterior rectovaginal septum. Once all the skin edges were mobilized at least 1 cm, then went ahead and closed the perineum with 2- 0 Vicryl in an interrupted fashion. Then, continuous running 2-0 Vicryl stitch in a horizontal mattr ess fashion was used to close the entire reconstructive area. Then, the topmost part of the incision was closed with another interrupted 2-0 Vicryl stitch. Vaginal packing was placed. There was excel lent hemostasis and Escalante catheter was placed because I anticipated pain from the reconstruction and difficulty to empty, so she will keep that catheter for 24 hours and packing will be removed tomorrow in 24 hours as well. The patient tolerated the procedure well. She was recovered from anesthesia and taken to P ACU in stable condition. ESTELITA/JASON Voice ID: [id number] Report ID: [id number]
== END 2023-03-10 09:55 | disposition home or self-care (01) ==
LOC: OR 05:51
PROVIDERS: ATTEND Obstetrics & Gynecology
PROC: 0HX9XZZ Transfer Perineum Skin, External Approach (ICD-10-PCS; 2023-03-10)
PROC: 0UJH8ZZ Inspection of Vagina and Cul-de-sac, Via Natural or Artificial Opening Endoscopic (ICD-10-PCS; 2023-03-10)
PROC: 0UTM0ZZ Resection of Vulva, Open Approach (ICD-10-PCS; principal; 2023-03-10 07:00)
DX: D07.1 Carcinoma in situ of vulva (principal)
CPT/HCPCS: 56620; 14040; 88305; 56821; J2704; J2710; J2001 ×2; J2250; J2405; J7120; J0690; J3010